=== PATIENT | female | born 1945 | race Caucasian/White ===

== ENCOUNTER → 2021-06-05 | Outpatient (CLI) | payer MEDICARE, OTHER ==
[~2021-06-05] MED LIST: AMITRIPTYLINE H25 M3 PO; AMLODIPINE BESYL5 MG PO; APAP W/CODEINE1 TA2; ASPIRIN EC81 M1 PO; ATIVAN0.5 MG PO; BACLOFEN 10MG T10 MG PO; CARDIZEM CD180 MG PO; CARVEDILOL12.5 MG PO; CLONAZEPAM 0.50.5 M1 PO; CLONIDINE HCL0.1 MG PO; CLONIDINE HCL0.2 M2 PO; ESCITALOPRAM PO; FLONASE 0.05%50 MCG NARES; GABAPENTIN800 M1 PO; GLIMEPIRIDE1 MG PO; HYDROCHLOROTHIA25 M2 PO; IBUPROFEN 600600 M1 PO; KEPPRA XR500 MG PO; KEPPRA750 MG PO; LISINOPRIL5 MG PO; LUMIGAN5 ML; METFORMIN HCL500 M2 PO; NEURONTIN 300300 M1 PO; NEURONTIN800 MG PO; OMEPRAZOLE 20 M20 MG PO; ONDANSETRON HCL8 MG PO; PRINIVIL20 M1 PO; PROZAC10 MG PO; REMERON15 MG PO; SERTRALINE HCL50 MG; TIZANIDINE HCL4 M1 PO; TRAZODONE HCL50 MG PO; VENTOLIN HFA 1818 GM INH; VICOPROFEN 2001 EACH PO
== END ==
LOC: M.PC 09:40
PROVIDERS: ATTEND Anesthesiology Pain Medicine
DX: I95.9 Hypotension, unspecified (principal); R56.9 Unspecified convulsions; M54.16 Radiculopathy, lumbar region; I10 Essential (primary) hypertension; F32.9 Major depressive disorder, single episode, unspecified; Z86.73 Personal history of transient ischemic attack (TIA), and cerebral infarction without residual deficits

== ENCOUNTER → 2021-06-14 | Outpatient (CLI) | payer MEDICARE, OTHER | END | disposition home or self-care (01) | LOC: M.PC 10:59 | PROVIDERS: ATTEND Anesthesiology Pain Medicine | DX: M54.16 Radiculopathy, lumbar region (principal); G89.29 Other chronic pain; I10 Essential (primary) hypertension; F32.9 Major depressive disorder, single episode, unspecified; F17.210 Nicotine dependence, cigarettes, uncomplicated; Z98.890 Other specified postprocedural states; Z79.899 Other long term (current) drug therapy; Z90.710 Acquired absence of both cervix and uterus; Z86.73 Personal history of transient ischemic attack (TIA), and cerebral infarction without residual deficits; Z88.8 Allergy status to other drugs, medicaments and biological substances ==

== ENCOUNTER → 2021-10-30 | Outpatient (CLI) | payer MEDICARE, OTHER ==
[~2021-10-30] MED LIST changes: +FLUCONAZOLE 10100 MG PO
== END | disposition home or self-care (01) ==
LOC: M.PC 11:45
PROVIDERS: ATTEND Anesthesiology Pain Medicine
DX: M54.16 Radiculopathy, lumbar region (principal); G89.29 Other chronic pain; I10 Essential (primary) hypertension; F32.9 Major depressive disorder, single episode, unspecified; F17.210 Nicotine dependence, cigarettes, uncomplicated; Z98.890 Other specified postprocedural states; Z79.899 Other long term (current) drug therapy; Z86.73 Personal history of transient ischemic attack (TIA), and cerebral infarction without residual deficits; Z88.8 Allergy status to other drugs, medicaments and biological substances